=== PATIENT | male | born 1930 | race Caucasian/White ===

== ENCOUNTER 2017-01-22 11:10 | Emergency (ER) | payer OTHER ==
[~2017-01-22] VITALS: Ht 162.6 cm; Wt 65.0 kg
--- NOTE | 2017-01-22 11:16 | ERA ---
ER Documentation Chief Complaint Date/Time DATE: 01/22/17 TIME: 11:15 Chief Complaint Chest pain HPI The patient is 86-year-old male, presenting with substernal chest pain that began around 8 PM last night, 05/08, nonradiating. He denies any chest pain with exertion or vomiting or diaphoresis. He was treated with aspirin 162 mg p.o. and 3 nitroglycerin spray by EMS with minimal response. He denies fever, chills, neck pain, dyspnea, abdominal pain, vomiting, dysuria, diarrhea he does not smoke nor drink Past medical history: CAD Past surgical history: CABG ROS All systems reviewed and are negative except as per history of present illness. Medications Home Meds Reported Medications Metoprolol Tartrate* (Lopressor*) 25 Mg Tab, 25 MG PO BID, #60 TAB 01/22/17 Finasteride* (Finasteride*) 5 Mg Tablet, 5 MG PO DAILY, TAB 01/22/17 Memantine* (Namenda*) 5 Mg Tablet, 5 MG PO BID, #60 TAB 01/22/17 Meloxicam* (Meloxicam*) 7.5 Mg Tablet, 7.5 MG PO DAILY, #30 TAB 01/22/17 Omeprazole* (Omeprazole*) 20 Mg Capsule.dr, 20 MG PO DAILY, #30 CAP 01/22/17 Atorvastatin* (Atorvastatin*) 40 Mg Tablet, 40 MG PO QHS, #30 TAB 01/22/17 Allergies Allergies: Coded Allergies: No Known Allergy (Unverified , 01/22/17) Physical Exam Vitals Vital Signs Date Time Temp Pulse Resp B/P Pulse Ox O2 Delivery O2 Flow Rate FiO2 01/22/17 13:51 62 18 130/78 100 Room Air 01/22/17 13:00 67 18 112/53 100 Room Air 01/22/17 11:55 0 01/22/17 11:54 74 18 117/53 100 Room Air 01/22/17 11:20 77 18 124/62 100 01/22/17 11:20 98.1 80 18 124/62 99 Physical Exam Const: No acute distress. Head: Atraumatic. Eyes: Normal Conjunctiva. ENT: Normal External Ears, Nose and Mouth. Neck: Full range of motion. No meningismus. Resp: Clear to auscultation bilaterally. Cardio: Regular rate and rhythm, no murmurs. Abd: Soft, non distended, normal bowel sounds, non tender. Skin: No petechiae or rashes. Back: No midline or flank tenderness. Ext: No cyanosis, or edema. Neur: Awake and alert. No focal deficit Psych: Normal Mood and Affect. Result Diagram: 01/22/17 1152 01/22/17 1152 Results 24 hrs Laboratory Tests Test 01/22/17 11:52 White Blood Count 9.310^3/ul Red Blood Count 3.6810^6/ul Hemoglobin 12.3g/dl Hematocrit 36.6% Mean Corpuscular Volume 99.5fl Mean Corpuscular Hemoglobin 33.4pg Mean Corpuscular Hemoglobin Concent 33.6g/dl Red Cell Distribution Width 13.2% Platelet Count 69475^3/UL Mean Platelet Volume 11.4fl Neutrophils % 77.8% Lymphocytes % 9.8% Monocytes % 9.2% Eosinophils % 2.6% Basophils % 0.3% Nucleated Red Blood Cells % 0.0/100WBC Neutrophils # 7.210^3/ul Lymphocytes # 0.910^3/ul Monocytes # 0.910^3/ul Eosinophils # 0.210^3/ul Basophils # 0.010^3/ul Nucleated Red Blood Cells # 0.010^3/ul Prothrombin Time 13.4Sec Prothrombin Time Ratio 1.0 INR International Normalized Ratio 1.02 Activated Partial Thromboplast Time 23.4Sec Sodium Level 134mmol/L Potassium Level 4.1mmol/L Chloride Level 104mmol/L Carbon Dioxide Level 26mmol/L Anion Gap 8 Blood Urea Nitrogen 27mg/dl Creatinine 0.83mg/dl Glucose Level 135mg/dl Calcium Level 8.9mg/dl Troponin I < 0.012ng/ml Current Medications Medications (Trade) Dose Ordered Sig/Diane Route PRN Reason Start Time Stop Time Status Last Admin Dose Admin Nitroglycerin (Nitroglycerin 2% Oint) 1 inch ONCE ONCE TD 01/22/17 11:30 01/22/17 11:31 DC 01/22/17 11:49 Morphine Sulfate (morphine) 2 mg ONCE ONCE IV 01/22/17 14:00 01/22/17 14:01 Ondansetron HCl (Zofran Inj) 4 mg ONCE STAT IV 01/22/17 13:37 01/22/17 13:40 DC Procedures/MDM [place] [id number] Radiology Main Line: [phone] DIAGNOSTIC IMAGING REPORT Patient: ANGE BURTON : 1930 Age: 86 Sex: M MR #: [id number] DOS: 01/22/17 1116 Ordering MD: KARTHIK ALFONSO MD Location: E/R Room/Bed: PROCEDURE: XR Chest. CLINICAL INDICATION: Chest pain TECHNIQUE: AP view of the chest was obtained. COMPARISON: None. FINDINGS: There are atherosclerotic calcifications of the thoracic aorta. Cardiac silhouette is mildly enlarged. Post CABG changes are noted. There is asymmetric increased density at the right apex. No pleural effusion or pneumothorax is seen. Shoulder degenerative changes are noted. IMPRESSION: Asymmetric increased density at the right apex, which may be due to overlying structures but underlying consolidation or other abnormality is difficult to exclude. Follow-up is advised. Mild cardiomegaly. RPTAT: VV .López Laguna MD, MD Date Time Electronically viewed and signed by .López Laguna MD, MD on 01/22/2017 13:13 .O/ CC: KARTHIK ALFONSO MD EKG: Read by emergency physician Rate/Rhythm: Normal Sinus Rhythm beats/min QRS, ST, T-waves: No ST elevation, no T inversion, shortened IN Impression: Abnormal EKG MEDICAL MAKING DECISION: The patient is a 86-year-old male, presenting with acute chest pain, concerning for ACS. He was treated with 1 inch of nitroglycerin ointment, morphine 2 mg IV for pain, Zofran 4 mg IV for nausea with good response The differential diagnoses considered include but are not limited to acute coronary syndrome, acute myocardial infarction, pericarditis, pulmonary embolism , aortic dissection, pneumonia, pleural effusion, pneumothorax, GERD, chest wall pain. Departure Diagnosis: Primary Impression: Chest pain Additional Impression: Anemia Condition: Stable Comments I discussed the findings with the patient. I discussed the patient with his physician Dr. Castellanos from [facility] at 1:30 pm who was made aware of the lab, the treatment, the patient condition. The patient is transferred to [facility] via ambulance KARTHIK ALFONSO MD Jan 22, 2017 11:16
[2017-01-22 11:20] VITALS: Ht 162.6 cm; Wt 65.0 kg
[2017-01-22] MEDS ORDERED: NITROGLYCERIN 2% 1 GM OINT PKT TD ONE (11:30)
[2017-01-22 12:07] LABS: ADD SCAN DIFF NO
[2017-01-22 12:11] LABS: BASOPHILS % 0.3 % (0.0-2.0); EOSINOPHILS # 0.2 10^3/ul (0.0-0.5); EOSINOPHILS % 2.6 % (0.0-7.0); HEMATOCRIT 36.6 % (42.0-52.0); HEMOGLOBIN 12.3 g/dl (14.0-18.0); LYMPHOCYTES # 0.9 10^3/ul (0.8-2.9); LYMPHOCYTES % 9.8 % (15.0-51.0); MEAN CORPUSCULAR HEMOGLOBIN 33.4 pg (29.0-33.0); MEAN CORPUSCULAR HGB CONC 33.6 g/dl (32.0-37.0); MEAN CORPUSCULAR VOLUME 99.5 fl (82.0-101.0); MEAN PLATELET VOLUME 11.4 fl (7.4-10.4); MONOCYTE # 0.9 10^3/ul (0.3-0.9); MONOCYTES % 9.2 % (0.0-11.0); NEUTROPHIL # 7.2 10^3/ul (1.6-7.5); NEUTROPHILS % 77.8 % (39.0-77.0); PLATELET COUNT 152 10^3/UL (140-415); RED BLOOD COUNT 3.68 10^6/ul (4.70-6.10); RED CELL DISTRIBUTION WIDTH 13.2 % (11.5-14.5); WHITE BLOOD COUNT 9.3 10^3/ul (4.8-10.8)
[2017-01-22 12:21] LABS: INR 1.02; PROTIME 13.4 Sec (12.2-14.2)
[2017-01-22 12:22] LABS: PARTIAL THROMBOPLASTIN TIME 23.4 Sec (25.0-35.0)
[2017-01-22 12:26] LABS: ANION GAP 8 (8-16); BLOOD UREA NITROGEN 27 mg/dl (7-20); CALCIUM 8.9 mg/dl (8.4-10.2); CARBON DIOXIDE 26 mmol/L (21-31); CHLORIDE 104 mmol/L (97-110); CREATININE 0.83 mg/dl (0.61-1.24); GLUCOSE 135 mg/dl (70-220); POTASSIUM 4.1 mmol/L (3.5-5.1); SODIUM 134 mmol/L (135-144)
[2017-01-22] MEDS ORDERED: MELO-109 PO (12:31)
[2017-01-22] MEDS ORDERED: OMEP20CA16 PO (12:31)
[2017-01-22] MEDS ORDERED: MEMA5TAB PO (12:31)
[2017-01-22] MEDS ORDERED: ATOR40TA68 PO (12:31)
[2017-01-22] MEDS ORDERED: METO-448 PO (12:32)
[2017-01-22] MEDS ORDERED: FINA5TAB4 PO (12:32)
[2017-01-22 12:47] LABS: TROPONIN-I < 0.012 ng/ml (0.00-0.12)
--- NOTE | 2017-01-22 13:14 | RADRPT ---
PROCEDURE: XR Chest. CLINICAL INDICATION: Chest pain TECHNIQUE: AP view of the chest was obtained. COMPARISON: None. FINDINGS: There are atherosclerotic calcifications of the thoracic aorta. Cardiac silhouette is mildly enlar ged. Post CABG changes are noted. There is asymmetric increased density at the right apex. No ple ural effusion or pneumothorax is seen. Shoulder degenerative changes are noted. IMPRESSION: Asymmetric increased density at the right apex, which may be due to overlying structures but underly ing consolidation or other abnormality is difficult to exclude. Follow-up is advised. Mild cardiomegaly. RPTAT: VV .López Laguna MD, MD Date Time Electronically viewed and signed by .López Laguna MD, on 01/22/2017 13:13 .O/
[2017-01-22] MEDS ORDERED: ONDANSETRON 4 MG INJ IV STA (13:37)
[2017-01-22] MEDS ORDERED: morphine 2 MG INJ IV ONE (14:00)
[2017-01-22 15:02] VITALS: BP 120/70; PULSE 82; RESP 18
== END 2017-01-22 15:04 | disposition short-term general hospital (02) ==
LOC: E/R 11:10
DX: R07.9 Chest pain, unspecified (principal); D64.9 Anemia, unspecified
CPT/HCPCS: 36415; 71010; 80048; 84484; 85025; 85610; 85730; 93005; J2270; J2405

== ENCOUNTER 2017-12-15 23:06 | Emergency (ER) | END 2017-12-16 00:42 | disposition left against medical advice (07) ==